=== PATIENT | female | born 1945 | race Caucasian/White ===

== ENCOUNTER 2024-02-03 14:31 | Observation (INO) | payer MEDICARE ==
--- NOTE | 2024-02-03 15:08 | ED ---
General Adult HPI - General Chief complaint: Syncope Stated complaint: Syncope Time Seen by Provider: 02/03/24 14:38 Source: patient, EMS, RN notes reviewed Mode of arrival: EMS Limitations: no limitations - History of Present Illness Initial comments: Patient is a pleasant 79-year-old female present to the emergency department with syncopal episode. Patient was up and walking with assistance from the . Patient was having some discomfort of her left knee and then did had a syncopal episode. Patient still had pulse and was breathing however was unresponsive per . This lasted up to 8 minutes. No history of similar symptoms previously. No trauma. Patient is postoperative left knee replacement 1 day ago. Patient states she is symptom-free at this time - Related Data Home Medications Medication Instructions Recorded Confirmed Allergy Medication (With Benadryl) 1 dose PO HS 02/03/24 02/03/24 Aspirin EC [Ecotrin] 325 mg PO BID 02/03/24 02/03/24 Baclofen 10 mg PO HS 02/03/24 02/03/24 Butalb/APAP/Caff 50-325-40Mg 1 tab PO Q4H PRN MDD 4 tabs 02/03/24 02/03/24 [Fioricet 50-325-40] Cholecalciferol [Vitamin D3 (125 125 mcg PO DAILY 02/03/24 02/03/24 Mcg = 5000 Iu)] Ibuprofen [Motrin] 800 mg PO Q6H PRN 02/03/24 02/03/24 Levothyroxine Sodium [Synthroid] 112 mcg PO DAILY 02/03/24 02/03/24 Loratadine [Claritin] 10 mg PO DAILY 02/03/24 02/03/24 Magnesium Oxide [Mag-Ox] 400 mg PO HS 02/03/24 02/03/24 Multivitamins, Thera [Multivitamin 1 tab PO DAILY 02/03/24 02/03/24 (formulary)] Nitrofurantoin Monohyd/M-Cryst 100 mg PO DAILY 02/03/24 02/03/24 [Macrobid] Simvastatin [Zocor] 10 mg PO DAILY 02/03/24 02/03/24 Venlafaxine HCl [Effexor XR] 150 mg PO DAILY 02/03/24 02/03/24 Verapamil HCl [Verapamil ER] 240 mg PO DAILY 02/03/24 02/03/24 Vitamin B Complex 1 cap PO DAILY 02/03/24 02/03/24 hydroCHLOROthiazide [Hydrodiuril] 25 mg PO DAILY 02/03/24 02/03/24 oxyCODONE HCL [OxyIR] 5 - 10 mg PO Q6H PRN 02/03/24 02/03/24 traMADol HCL 50 mg PO Q6H PRN 02/03/24 02/03/24 Allergies Allergy/AdvReac Type Severity Reaction Status Date / Time Iodinated Contrast Media Allergy Rash/Hives Verified 02/03/24 16:16 meperidine [From Demerol] Allergy HIVES Verified 02/03/24 16:16 Penicillins Allergy Unknown Verified 02/03/24 16:16 Childhood sulfur dioxide Allergy Unknown Verified 02/03/24 16:16 Childhood Review of Systems ROS Statement: Those systems with pertinent positive or pertinent negative responses have been documented in the HPI. ROS Other: All systems not noted in ROS Statement are negative. Constitutional: Denies: fever Eyes: Denies: eye pain ENT: Denies: ear pain Respiratory: Denies: cough, dyspnea Cardiovascular: Denies: chest pain Endocrine: Denies: fatigue Gastrointestinal: Denies: abdominal pain Genitourinary: Denies: dysuria Musculoskeletal: Denies: back pain Neurological: Denies: headache, weakness, confusion Past Medical History Past Medical History: Cancer History of Any Multi-Drug Resistant Organisms: None Reported Past Surgical History: Orthopedic Surgery, Tubal Ligation Additional Past Surgical History / Comment(s): thyroid CA, thyroid removed, Past Psychological History: No Psychological Hx Reported Smoking Status: Former smoker Past Alcohol Use History: None Reported Past Drug Use History: None Reported General Exam Limitations: no limitations General appearance: alert, in no apparent distress Head exam: Present: atraumatic, normocephalic Eye exam: Present: normal appearance, PERRL, EOMI ENT exam: Present: normal oropharynx Neck exam: Present: normal inspection. Absent: tenderness Respiratory exam: Present: normal lung sounds bilaterally Cardiovascular Exam: Present: regular rate, normal rhythm Expanded Peripheral pulses: 2+: Radial (R), Radial (L), Posterior Tibialis (R), Posterior Tibialis (L) GI/Abdominal exam: Present: soft. Absent: tenderness Extremities exam: Present: other (Left knee brace). Absent: calf tenderness Neurological exam: Present: alert, oriented X3, CN II-XII intact. Absent: motor sensory deficit Psychiatric exam: Present: normal affect, normal mood Skin exam: Present: normal color Course Vital Signs 02/03/24 02/03/24 02/03/24 14:46 15:32 15:35 Temperature 98 F Pulse Rate 71 51 L 70 Respiratory 18 18 18 Rate Blood Pressure 116/63 86/52 O2 Sat by Pulse 95 95 95 Oximetry 02/03/24 02/03/24 02/03/24 15:43 15:45 16:20 Temperature Pulse Rate 70 70 72 Respiratory 24 16 18 Rate Blood Pressure 128/62 136/64 134/54 O2 Sat by Pulse 92 L 98 95 Oximetry 02/03/24 17:02 Temperature Pulse Rate 72 Respiratory 17 Rate Blood Pressure 125/54 O2 Sat by Pulse 95 Oximetry EKG Findings - EKG Results: EKG: interpreted by EL (Left axis. Septal Q waves.), sinus rhythm, normal ST/T Medical Decision Making - Medical Decision Making Was pt. sent in by a medical professional or institution (Dr. PA, DIAMOND ASSORTER, urgent care, hospital, or halfway...) When possible be specific @ -No Did you speak to anyone other than the patient for history (EMS, parent, family, police, friend...)? What history was obtained from this source @ -History also taken by the who did witness the event and reports 8 minutes of unresponsiveness Did you review nursing and triage notes (agree or disagree)? Why? @ -I reviewed and agree with nursing and triage notes Were old charts reviewed (outside hosp., previous admission, EMS record, old EKG, old radiological studies, urgent care reports/EKG's, halfway records)? Report findings @ -No old charts were reviewed Differential Diagnosis (chest pain, altered mental status, abdominal pain women, abdominal pain men, vaginal bleeding, weakness, fever, dyspnea, syncope, headache, dizziness, GI bleed, back pain, seizure, CVA, palpatations, mental health, musculoskeletal)? @ -Differential Syncope: Valvular disease, hypertrophic cardiomyopathy, pulmonary embolism, tamponade, tachycardia, bradycardia, NC, hypovolemia, hemorrhage, dissection, anemia, intracranial hemorrhage, seizure, hypoglycemia, carbon monoxide poisoning, this is not meant to be an all-inclusive list. EKG interpreted by me (3pts min.). @ -As above X-rays interpreted by me (1pt min.). @ -None done CT interpreted by me (1pt min.). @ -CT scan of the chest negative for pulmonary embolism U/S interpreted by me (1pt. min.). @ -None done What testing was considered but not performed or refused? (CT, X-rays, U/S, labs)? Why? @ -None What meds were considered but not given or refused? Why? @ -None Did you discuss the management of the patient with other professionals (professionals i.e. DrFarrah, PA, DIAMOND ASSORTER, lab, RT, psych nurse, professor of social work, differential specialist, teacher, executive officer, case management coordinator)? Give summary @ -Case was discussed in detail with Dr. Alves who will admit covering for Dr. London Was smoking cessation discussed for >3mins.? @ -No Was critical care preformed (if so, how long)? @ -No Were there social determinants of health that impacted care today? How? (Homelessness, low income, unemployed, alcoholism, drug addiction, transportation, low edu. Level, literacy, decrease access to med. care, half-way, rehab)? @ -No Was there de-escalation of care discussed even if they declined (Discuss DNR or withdrawal of care, Hospice)? DNR status @ -No What co-morbidities impacted this encounter? (DM, HTN, Smoking, COPD, CAD, Cancer, CVA, ARF, Chemo, Hep., AIDS, mental health diagnosis, sleep apnea, morbid obesity)? @ -Postoperative knee replacement 1 day Was patient admitted / discharged? Hospital course, mention meds given and route, prescriptions, significant lab abnormalities, going to OR and other pertinent info. @ -Patient reevaluated and resting comfortably in bed. Patient and family updated on results and plan. Patient will be admitted. Admission orders written. Undiagnosed new problem with uncertain prognosis? @ -No Drug Therapy requiring intensive monitoring for toxicity (Heparin, Nitro, Insulin, Cardizem)? @ -No Were any procedures done? @ -No Diagnosis/symptom? @ -Syncope Acute, or Chronic, or Acute on Chronic? @ -Acute Uncomplicated (without systemic symptoms) or Complicated (systemic symptoms)? @ -Default Side effects of treatment? @ -No Exacerbation, Progression, or Severe Exacerbation? @ -No Poses a threat to life or bodily function? How? (Chest pain, USA, NC, pneumonia, PE, COPD, DKA, ARF, appy, cholecystitis, CVA, Diverticulitis, Homicidal, Suicidal, threat to staff... and all critical care pts) @ -No - Lab Data Result diagrams: 02/03/24 15:13 02/03/24 15:13 Lab Results 02/03/24 02/03/24 02/03/24 Range/Units 15:13 15:13 15:13 WBC 7.3 (3.8-10.6) k/uL RBC 3.92 (3.80-5.40) m/uL Hgb 12.3 (11.4-16.0) gm/dL Hct 37.1 (34.0-46.0) % MCV 94.6 (80.0-100.0) fL MCH 31.4 (25.0-35.0) pg MCHC 33.2 (31.0-37.0) g/dL RDW 13.3 (11.5-15.5) % Plt Count 113 L (150-450) k/uL MPV 7.5 Neutrophils % 77 % Lymphocytes % 13 % Monocytes % 7 % Eosinophils % 3 % Basophils % 1 % Neutrophils # 5.6 (1.3-7.7) k/uL Lymphocytes # 1.0 (1.0-4.8) k/uL Monocytes # 0.5 (0-1.0) k/uL Eosinophils # 0.2 (0-0.7) k/uL Basophils # 0.0 (0-0.2) k/uL PT (10.0-12.5) sec INR (<1.2) APTT (22.0-30.0) sec Sodium 135 L (137-145) mmol/L Potassium 3.8 (3.5-5.1) mmol/L Chloride 100 (98-107) mmol/L Carbon Dioxide 31 H (22-30) mmol/L Anion Gap 4 mmol/L BUN 10 (7-17) mg/dL Creatinine 0.45 L (0.52-1.04) mg/dL Est GFR (CKD-EPI)AfAm >90 (>60 ml/min/1.73 sqM) Est GFR (CKD-EPI)NonAf >90 (>60 ml/min/1.73 sqM) Glucose 121 H (74-99) mg/dL Calcium 8.6 (8.4-10.2) mg/dL Magnesium 1.7 (1.6-2.3) mg/dL Total Bilirubin 0.5 (0.2-1.3) mg/dL AST 27 (14-36) U/L ALT 23 (4-34) U/L Alkaline Phosphatase 102 (38-126) U/L Troponin I <0.012 (0.000-0.034) ng/mL Total Protein 6.1 L (6.3-8.2) g/dL Albumin 3.6 (3.5-5.0) g/dL 02/03/24 Range/Units 16:22 WBC (3.8-10.6) k/uL RBC (3.80-5.40) m/uL Hgb (11.4-16.0) gm/dL Hct (34.0-46.0) % MCV (80.0-100.0) fL MCH (25.0-35.0) pg MCHC (31.0-37.0) g/dL RDW (11.5-15.5) % Plt Count (150-450) k/uL MPV Neutrophils % % Lymphocytes % % Monocytes % % Eosinophils % % Basophils % % Neutrophils # (1.3-7.7) k/uL Lymphocytes # (1.0-4.8) k/uL Monocytes # (0-1.0) k/uL Eosinophils # (0-0.7) k/uL Basophils # (0-0.2) k/uL PT 11.5 (10.0-12.5) sec INR 1.1 (<1.2) APTT 19.9 L (22.0-30.0) sec Sodium (137-145) mmol/L Potassium (3.5-5.1) mmol/L Chloride (98-107) mmol/L Carbon Dioxide (22-30) mmol/L Anion Gap mmol/L BUN (7-17) mg/dL Creatinine (0.52-1.04) mg/dL Est GFR (CKD-EPI)AfAm (>60 ml/min/1.73 sqM) Est GFR (CKD-EPI)NonAf (>60 ml/min/1.73 sqM) Glucose (74-99) mg/dL Calcium (8.4-10.2) mg/dL Magnesium (1.6-2.3) mg/dL Total Bilirubin (0.2-1.3) mg/dL AST (14-36) U/L ALT (4-34) U/L Alkaline Phosphatase (38-126) U/L Troponin I (0.000-0.034) ng/mL Total Protein (6.3-8.2) g/dL Albumin (3.5-5.0) g/dL Disposition Clinical Impression: Syncope Disposition: ADMITTED IP TO THIS HOSP Is patient prescribed a controlled substance at d/c from ED?: No Referrals: Jagdeep London MD [Primary Care Provider] - 1-2 days Time of Disposition: 17:37
[2024-02-03] MEDS: SODIUM CHLORIDE 0.9% 1,000 ML IV STA (15:24)
[2024-02-03 15:28] LABS: Basophils % (A) 1 %; Eosinophils # (A) 0.2 k/uL (0-0.7); Eosinophils % (A) 3 %; HCT 37.1 % (34.0-46.0); HGB 12.3 gm/dL (11.4-16.0); Lymphocytes % (A) 13 %; MCH 31.4 pg (25.0-35.0); MCHC 33.2 g/dL (31.0-37.0); MCV 94.6 fL (80.0-100.0); Mean Platelet Volume 7.5; Monocytes # (A) 0.5 k/uL (0-1.0); Monocytes % (A) 7 %; Neutrophils # (A) 5.6 k/uL (1.3-7.7); Neutrophils % (A) 77 %; Platelet Count 113 k/uL (150-450); RBC 3.92 m/uL (3.80-5.40); RDW 13.3 % (11.5-15.5); WBC 7.3 k/uL (3.8-10.6)
[2024-02-03 15:40] LABS: ALT 23 U/L (4-34); AST 27 U/L (14-36); African American GFR (CKD) >90 (>60 ml/min/1.73 sqM); Albumin 3.6 g/dL (3.5-5.0); Alkaline Phosphatase 102 U/L (38-126); Anion Gap 4 mmol/L; Blood Urea Nitrogen 10 mg/dL (7-17); Calcium 8.6 mg/dL (8.4-10.2); Carbon Dioxide 31 mmol/L (22-30); Chloride 100 mmol/L (98-107); Glucose 121 mg/dL (74-99); Magnesium 1.7 mg/dL (1.6-2.3); Non-African American GFR(CKD) >90 (>60 ml/min/1.73 sqM); Potassium 3.8 mmol/L (3.5-5.1); Sodium 135 mmol/L (137-145); Total Bilirubin 0.5 mg/dL (0.2-1.3); Total Protein 6.1 g/dL (6.3-8.2)
[2024-02-03] MEDS: FAMOTIDINE 20 MG/2 ML VIAL IV STA (15:46)
[2024-02-03] MEDS: methylPREDNISolone SOD SUCCI 125 MG/2 ML VIAL IV STA (15:48)
[2024-02-03] MEDS: diphenhydrAMINE 50 MG/ML 1 ML VIAL IVP STA (15:48)
--- NOTE | 2024-02-03 16:41 | CT ---
EXAMINATION TYPE: CT angio chest CT DLP: 166.9 mGycm, Automated exposure control for dose reduction was used. DATE OF EXAM: 02/03/2024 4:29 PM COMPARISON: None CLINICAL INDICATION:Female, 79 years old with history of Postoperative syncope; Postoperative syncope . pt had pacemaker placed yesterday. sob today TECHNIQUE/CONTRAST: CTA scan of the thorax is performed with IV Contrast, patient injected with 100 cc mL of Isovue 300, MIP images are created and reviewed these are created on a separate workstation.. FINDINGS: Pulmonary Artery: There is no evidence for a filling defect within the pulmonary vasculature to sugge st acute pulmonary embolism. The pulmonary artery is of normal size. Lungs/Pleura: No evidence of focal consolidation, pleural effusion or pneumothorax. Airway: Large airways are patent. Heart: Heart is within normal limits for size. Mild to moderate coronary artery atherosclerosis. Vasculature: No evidence of aortic aneurysm. Mediastinum: No gross evidence of adenopathy. Musculoskeletal: No acute osseous abnormalities Soft Tissues: Unremarkable. Lower neck: No significant findings. Upper Abdomen: No significant findings. IMPRESSION: 1. No evidence of pulmonary embolism.
[2024-02-03 16:47] LABS: INR 1.1 (<1.2); Prothrombin Time 11.5 sec (10.0-12.5)
[2024-02-03 16:48] LABS: Partial Thromboplastin Time 19.9 sec (22.0-30.0)
[2024-02-03] MEDS ORDERED: HYDROcodone/APAP 5-325MG 1 EACH TAB PO PRN (17:37)
[2024-02-03] MEDS ORDERED: NALOXONE 0.4 MG/ML 1 ML VIAL IV PRN (17:37)
[2024-02-03] MEDS ORDERED: traMADol 50 MG TAB PO PRN (17:37)
[2024-02-03] MEDS: SODIUM CHLORIDE 0.9% 1,000 ML IV SCH (17:44)
[2024-02-03] MEDS ORDERED: BUTALB/APAP/CAFF 50-325-40MG TAB PO PRN (17:46)
[2024-02-03] MEDS: BACLOFEN 10 MG TAB PO SCH (20:56)
[2024-02-03] MEDS: ASPIRIN 325 MG TAB PO SCH (20:56)
[2024-02-03] MEDS: MAGNESIUM OXIDE 400 MG TAB PO SCH (20:56)
[2024-02-03] MEDS: diphenhydrAMINE 25 MG CAP PO SCH (20:56)
[2024-02-04] MEDS: IBUPROFEN 800 MG TAB PO PRN (00:37)
--- NOTE | 2024-02-04 02:07 | P.HPIM ---
History of Present Illness H&P Date: 02/03/24 Patient is a 79-year-old female with a PMH of left total knee replacement on day prior to presentation (03/03/24) by orthopedic surgical [facility] as an outpatient, hyperlipidemia, hypertension, hypothyroidism, and chronic UTIs on maintenance antibiotic therapy who presents to the emergency room after an episode of syncope and fall. The history is supplemented by the patient's at the bedside. He reports that he was helping the patient to ambulate across the house with a walker when the patient got weaker and collapsed. The was holding onto her and thereby was able to ease her down to the ground with no head trauma noted. He noticed that she had lost consciousness and was unresponsive for 5 to 7 minutes, while having an intact pulse and breathing. He activated EMS and the patient had regained consciousness upon their arrival. The patient recalls feeling lightheaded but denies experiencing chest discomfort, shortness of breath, or palpitations. She also recalls experiencing some diaphoresis and nausea without vomiting earlier in the day. As per the sband, the patient's blood pressure was 80s/40s upon EMS arrival. There were no reports of abnormal shaking movements or urinary incontinence. The patient notes that she has been utilizing her automatic pain pump (w/ local anesthetic) and had also taken a few doses of prescribed tramadol for postoperative pain control which has been controlled very well. She reported feeling at her baseline at the time of interview and had no active complaints. Denied experiencing headaches, visual disturbances, fever, chills, cough, abdominal pain, diarrhea. Also denied experiencing urinary complaints or abdominal pain, despite her history of chronic UTIs and reports that the maintenance antibiotic therapy has been working well. Of note, the patient again had an episode of near syncope while in the hospital with BP at that time 86/52 documented in the emergency room with pulse 51. Chest CTA in the emergency room was negative for pulmonary embolism with EKG showing sinus rhythm at 69 bpm with T wave flattening in leads II, V3 to V6 and T wave inversion in lead III and aVF (no prior EKG available for comparison). Laboratory evaluation was remarkable for troponin less than 0.012, platelets 11 3, sodium 135, CO2 31, creatinine 0.45, glucose 121. ED documentation reviewed and case discussed with ED provider. Review of systems: Pertinent positives and negatives as discussed in HPI, a complete review of systems was performed and all other systems are negative. Physical examination: Vital signs reviewed General: non toxic, no distress, appears at stated age, normal weight Derm: no unusual rashes/lesions, warm, left knee dressing in place Head: atraumatic, normocephalic, symmetric Eyes: EOMI, no lid lag, anicteric sclera, pupils equal round reactive to light ENT: Nose and ears atraumatic Neck: No cervical lymphadenopathy, trachea midline, supple Mouth: no lip lesion, mucus membranes moist Cardiovascular: S1S2 reg, no murmur, positive dorsalis pedis pulse bilateral, no edema Lungs: CTA bilateral, no rhonchi, no rales, no accessory muscle use Abdominal: soft, nontender to palpation, no guarding Ext: muscle strength 5 out of 5 in all extremities grossly except left lower extremity since postsurgical, distal left lower extremity strength intact, no gross muscle atrophy, no contractures, pain pump intact and on Neuro: CN II-XI grossly intact, no gross focal neuro deficits Psych: Alert, oriented, appropriate affect Assessment: Syncope, unclear etiology Status post left total knee replacement POD #1 Thrombocytopenia Hyponatremia, likely due to acute stressor Chronic conditions: Hypertension, hyperlipidemia, hypothyroidism, chronic UTIs Imaging: Chest CTA in the emergency room was negative for pulmonary embolism with EKG showing sinus rhythm at 69 bpm with T wave flattening in leads II, V3 to V6 and T wave inversion in lead III and aVF (no prior EKG available for comparison). Data Review: Laboratory evaluation was remarkable for troponin less than 0.012, platelets 113, sodium 135, CO2 31, creatinine 0.45, glucose 121. Plan: Cardiology consulted Cardiac monitoring Obtain echocardiogram Pain control with Preemption 5, tramadol, and motrin as needed PT consult Fall precautions Resume following home medications: Aspirin 325 mg p.o. twice daily, Pepcid, Synthroid, Macrobid, verapamil, and Effexor Hold patients home HCTZ at this time DVT prophylaxis: Aspirin 325 mg p.o. twice daily The patient is admitted with an anticipated less than 2 midnight stay for e valuation of syncope CODE STATUS: Full Code Discussed with: Patient Anticipated discharge place: Home Past Medical History Past Medical History: Cancer History of Any Multi-Drug Resistant Organisms: None Reported Past Surgical History: Orthopedic Surgery, Tubal Ligation Additional Past Surgical History / Comment(s): thyroid CA, thyroid removed, Past Psychological History: No Psychological Hx Reported Smoking Status: Former smoker Past Alcohol Use History: None Reported Past Drug Use History: None Reported Medications and Allergies Home Medications Medication Instructions Recorded Confirmed Type Allergy Medication (With Benadryl) 1 dose PO HS 02/03/24 02/03/24 History Aspirin EC [Ecotrin] 325 mg PO BID 02/03/24 02/03/24 History Baclofen 10 mg PO HS 02/03/24 02/03/24 History Butalb/APAP/Caff 50-325-40Mg 1 tab PO Q4H PRN MDD 4 tabs 02/03/24 02/03/24 History [Fioricet 50-325-40] Cholecalciferol [Vitamin D3 (125 125 mcg PO DAILY 02/03/24 02/03/24 History Mcg = 5000 Iu)] Ibuprofen [Motrin] 800 mg PO Q6H PRN 02/03/24 02/03/24 History Levothyroxine Sodium [Synthroid] 112 mcg PO DAILY 02/03/24 02/03/24 History Loratadine [Claritin] 10 mg PO DAILY 02/03/24 02/03/24 History Magnesium Oxide [Mag-Ox] 400 mg PO HS 02/03/24 02/03/24 History Multivitamins, Thera [Multivitamin 1 tab PO DAILY 02/03/24 02/03/24 History (formulary)] Nitrofurantoin Monohyd/M-Cryst 100 mg PO DAILY 02/03/24 02/03/24 History [Macrobid] Simvastatin [Zocor] 10 mg PO DAILY 02/03/24 02/03/24 History Venlafaxine HCl [Effexor XR] 150 mg PO DAILY 02/03/24 02/03/24 History Verapamil HCl [Verapamil ER] 240 mg PO DAILY 02/03/24 02/03/24 History Vitamin B Complex 1 cap PO DAILY 02/03/24 02/03/24 History hydroCHLOROthiazide [Hydrodiuril] 25 mg PO DAILY 02/03/24 02/03/24 History oxyCODONE HCL [OxyIR] 5 - 10 mg PO Q6H PRN 02/03/24 02/03/24 History traMADol HCL 50 mg PO Q6H PRN 02/03/24 02/03/24 History Allergies Allergy/AdvReac Type Severity Reaction Status Date / Time Iodinated Contrast Media Allergy Rash/Hives Verified 02/03/24 16:16 meperidine [From Demerol] Allergy HIVES Verified 02/03/24 16:16 Penicillins Allergy Unknown Verified 02/03/24 16:16 Childhood sulfur dioxide Allergy Unknown Verified 02/03/24 16:16 Childhood Physical Exam Vitals: Vital Signs Temp Pulse Resp BP Pulse Ox 02/03/24 22:00 75 18 134/60 98 02/03/24 18:24 99.6 F 76 17 132/66 97 02/03/24 17:02 72 17 125/54 95 02/03/24 16:20 72 18 134/54 95 02/03/24 15:45 70 16 136/64 98 02/03/24 15:43 70 24 128/62 92 L 02/03/24 15:35 70 18 95 02/03/24 15:32 51 L 18 86/52 95 02/03/24 14:46 98 F 71 18 116/63 95 Intake and Output 02/03/24 02/03/24 02/04/24 14:59 22:59 06:59 Other: Weight 59.421 kg Results CBC & Chem 7: 02/03/24 15:13 02/03/24 15:13 Labs: Abnormal Lab Results - Last 24 Hours (Table) 02/03/24 02/03/24 02/03/24 Range/Units 15:13 15:13 16:22 Plt Count 113 L (150-450) k/uL APTT 19.9 L (22.0-30.0) sec Sodium 135 L (137-145) mmol/L Carbon Dioxide 31 H (22-30) mmol/L Creatinine 0.45 L (0.52-1.04) mg/dL Glucose 121 H (74-99) mg/dL Total Protein 6.1 L (6.3-8.2) g/dL
[2024-02-04] MEDS: LEVOTHYROXINE 112 MCG TAB PO SCH (06:13)
[2024-02-04] MEDS: MULTIVITAMINS, THERA 1 EACH TAB PO SCH (08:11)
[2024-02-04] MEDS: ATORVASTATIN 10 MG TAB PO SCH (08:11)
[2024-02-04] MEDS: VENLAFAXINE HCL ER 150 MG CAP PO SCH (08:11)
[2024-02-04] MEDS: VERAPAMIL SR 240 MG TABLET.ER PO SCH (08:11)
[2024-02-04] MEDS: LORATADINE 10 MG TAB PO SCH (08:11)
[2024-02-04] MEDS: CHOLECALCIFEROL 125 MCG (5000 IU) TABLET PO SCH (08:11)
[2024-02-04] MEDS: NITROFURANTOIN MONOHYD/M-CRYST 100 MG CAP PO SCH (08:12)
[2024-02-04] MEDS ORDERED: hydroCHLOROthiazide 25 MG TAB PO SCH (09:00)
[2024-02-04] MEDS ORDERED: NON FORMULARY DRUG (Vitamin B Complex [Vitamin B Complex] 1 EACH Capsule) PO SCH (09:00)
[2024-02-04 10:27] LABS: Basophils # (A) 0.01 X 10*3/uL (0.00-0.10); Basophils % (A) 0.1 %; Eosinophils # (A) 0 X 10*3/uL (0.04-0.35); Eosinophils % (A) 0 %; HCT 34.2 % (37.2-46.3); HGB 11.2 g/dL (12.0-15.0); Lymphocytes # (A) 0.48 X 10*3/uL (0.90-5.00); Lymphocytes % (A) 5.8 %; MCH 31.5 pg (27.0-32.0); MCHC 32.7 g/dL (32.0-37.0); MCV 96.1 FL (80.0-97.0); Mean Platelet Volume 9.9 FL (9.5-12.2); Monocytes # (A) 0.75 X 10*3/uL (0.20-1.00); NRBC Per 100 WBC 0 X 10*3/uL (0.00-0.01); Neutrophils # (A) 7.04 X 10*3/uL (1.80-7.70); Neutrophils % (A) 84.5 %; Platelet Count 168 X 10*3/uL (140-440); RBC 3.56 X 10*6/uL (4.10-5.20); RDW 13.8 % (11.5-14.5); WBC 8.33 X 10*3/uL (4.50-10.00)
--- NOTE | 2024-02-04 10:28 | P.CRDCN ---
History of Present Illness Consult date: 02/04/24 Consult reason: sycope History of present illness: History of present illness: This is a 79-year-old female patient of Dr. Adolfo Park with past medical history of hypertension, dyslipidemia, hypothyroidism. We have been asked to evaluate the patient for syncope. Patient and family give history that she had a left total knee arthroplasty on Friday went home by the afternoon. On Friday afternoon around 2 PM she was getting to the bathroom and her was assisting her with a gait belt. Patient became limp and her helped her to the floor. Patient did have a loss of consciousness for about 4 to 5 minutes. EMS was called and by the time the ambulance arrived, patient was talking. Patient also had sweats at the time and blood pressure initially found to be 80 systolic. Patient had a similar episode while in the emergency center where she was found to have a drop in her blood pressure to systolic of 80s, she was sweating. She had felt lightheaded. No loss of consciousness this time. She denies having any chest pain or palpitations. Patient is seen today in the emergency center waiting for a bed on the observation unit. EKG sinus rhythm with no acute ST-T wave changes. CTA of the chest negative for PE. WBC 7.3, hemoglobin 12.3. Sodium 135, potassium 3.8, creatinine 0.45. Troponin negative x 3. Glucose 121. Home cardiac medications: Aspirin 325 mg twice daily, hydrochlorothiazide 25 mg daily, magnesium oxide 400 mg at bedtime, simvastatin 10 mg at bedtime, verapamil 250 mg daily. Treadmill exercise stress test performed on 11/20/2023 revealed fair exercise tolerance. No symptoms typical of angina. Dysrhythmias in the form of occasional PVCs. Normal electrocardiographic response to exercise with no evidence of stress-induced ischemia. Echocardiogram performed in the office on 11/20/2023 revealed EF 55%. Mild left ventricular hypertrophy. Hello yes Review Of Systems: At the time of my exam: CONSTITUTIONAL: Denies fever or chills. HEENT: Denies blurred vision, vision changes, or eye pain. Denies hemoptysis CARDIOVASCULAR: Denies chest pain. Denies orthopnea. Denies PND. Denies palpitations RESPIRATORY: Denies shortness of breath. GASTROINTESTINAL: Denies abdominal pain. Denies nausea or vomiting. HEMATOLOGIC: Denies bleeding disorders. GENITOURINARY: Denies any blood in urine. SKIN: Denies pruitis. Denies rash. Physical examination: Gen: This is a 79-year-old female in no acute distress VS: reviewed, blood pressure 165/76, heart rate 91, pulse ox 98% on 2 L nasal cannula. HEENT: Head is atraumatic, normocephalic. Pupils equal, round. Sclerae is anicteric. NECK: Supple. No JVD. LUNGS: Clear to auscultation. No wheezes or rhonchi. No intercostal retractions. HEART: Regular rate and rhythm. No murmur. ABDOMEN: Soft No tenderness. EXTREMITIES: No pedal edema. No calf tenderness. Left knee dressing in place over surgical wound. NEUROLOGICAL: Patient is awake, alert and oriented x3. Assessment: Syncopal episode most likely secondary to orthostatic hypotension Hypertension Dyslipidemia Hypothyroidism Plan: Resume patient's home cardiac medications May obtain orthostatic vital signs later today Ambulate patient with walker and assistance to evaluate symptoms No need to obtain echocardiogram If patient is doing well by this afternoon, she is cleared for discharge. Thank you kindly for this consultation. Nurse practitioner note has been reviewed, I agree with documented findings and plan of care. Patient was seen and examined. Past Medical History Past Medical History: Cancer History of Any Multi-Drug Resistant Organisms: None Reported Past Surgical History: Orthopedic Surgery, Tubal Ligation Additional Past Surgical History / Comment(s): thyroid CA, thyroid removed, Past Psychological History: No Psychological Hx Reported Smoking Status: Former smoker Past Alcohol Use History: None Reported Past Drug Use History: None Reported Medications and Allergies Home Medications Medication Instructions Recorded Confirmed Type Allergy Medication (With Benadryl) 1 dose PO HS 02/03/24 02/03/24 History Aspirin EC [Ecotrin] 325 mg PO BID 02/03/24 02/03/24 History Baclofen 10 mg PO HS 02/03/24 02/03/24 History Butalb/APAP/Caff 50-325-40Mg 1 tab PO Q4H PRN MDD 4 tabs 02/03/24 02/03/24 History [Fioricet 50-325-40] Cholecalciferol [Vitamin D3 (125 125 mcg PO DAILY 02/03/24 02/03/24 History Mcg = 5000 Iu)] Ibuprofen [Motrin] 800 mg PO Q6H PRN 02/03/24 02/03/24 History Levothyroxine Sodium [Synthroid] 112 mcg PO DAILY 02/03/24 02/03/24 History Loratadine [Claritin] 10 mg PO DAILY 02/03/24 02/03/24 History Magnesium Oxide [Mag-Ox] 400 mg PO HS 02/03/24 02/03/24 History Multivitamins, Thera [Multivitamin 1 tab PO DAILY 02/03/24 02/03/24 History (formulary)] Nitrofurantoin Monohyd/M-Cryst 100 mg PO DAILY 02/03/24 02/03/24 History [Macrobid] Simvastatin [Zocor] 10 mg PO DAILY 02/03/24 02/03/24 History Venlafaxine HCl [Effexor XR] 150 mg PO DAILY 02/03/24 02/03/24 History Verapamil HCl [Verapamil ER] 240 mg PO DAILY 02/03/24 02/03/24 History Vitamin B Complex 1 cap PO DAILY 02/03/24 02/03/24 History hydroCHLOROthiazide [Hydrodiuril] 25 mg PO DAILY 02/03/24 02/03/24 History oxyCODONE HCL [OxyIR] 5 - 10 mg PO Q6H PRN 02/03/24 02/03/24 History traMADol HCL 50 mg PO Q6H PRN 02/03/24 02/03/24 History Allergies Allergy/AdvReac Type Severity Reaction Status Date / Time Iodinated Contrast Media Allergy Rash/Hives Verified 02/03/24 16:16 meperidine [From Demerol] Allergy HIVES Verified 02/03/24 16:16 Penicillins Allergy Unknown Verified 02/03/24 16:16 Childhood sulfur dioxide Allergy Unknown Verified 02/03/24 16:16 Childhood Physical Exam Vitals: Vital Signs Temp Pulse Resp BP Pulse Ox 02/04/24 06:04 71 18 125/58 97 02/04/24 04:00 75 18 123/57 95 02/04/24 01:00 83 16 140/67 97 02/04/24 00:00 81 12 130/65 97 02/03/24 23:00 73 16 134/60 94 L 02/03/24 22:00 75 18 134/60 98 02/03/24 21:00 86 16 137/67 95 02/03/24 20:00 78 12 124/52 96 02/03/24 19:00 79 16 130/71 96 02/03/24 18:24 99.6 F 76 17 132/66 97 02/03/24 17:02 72 17 125/54 95 02/03/24 16:20 72 18 134/54 95 02/03/24 15:45 70 16 136/64 98 02/03/24 15:43 70 24 128/62 92 L 02/03/24 15:35 70 18 95 02/03/24 15:32 51 L 18 86/52 95 02/03/24 14:46 98 F 71 18 116/63 95 Results 02/03/24 15:13 02/03/24 15:13 Cardiac Enzymes 02/03/24 02/03/24 02/03/24 Range/Units 15:13 15:13 17:59 AST 27 (14-36) U/L Troponin I <0.012 <0.012 (0.000-0.034) ng/mL 02/03/24 Range/Units 20:38 AST (14-36) U/L Troponin I <0.012 (0.000-0.034) ng/mL Coagulation 02/03/24 Range/Units 16:22 PT 11.5 (10.0-12.5) sec APTT 19.9 L (22.0-30.0) sec CBC 02/03/24 Range/Units 15:13 WBC 7.3 (3.8-10.6) k/uL RBC 3.92 (3.80-5.40) m/uL Hgb 12.3 (11.4-16.0) gm/dL Hct 37.1 (34.0-46.0) % Plt Count 113 L (150-450) k/uL Comprehensive Metabolic Panel 02/03/24 Range/Units 15:13 Sodium 135 L (137-145) mmol/L Potassium 3.8 (3.5-5.1) mmol/L Chloride 100 (98-107) mmol/L Carbon Dioxide 31 H (22-30) mmol/L BUN 10 (7-17) mg/dL Creatinine 0.45 L (0.52-1.04) mg/dL Glucose 121 H (74-99) mg/dL Calcium 8.6 (8.4-10.2) mg/dL AST 27 (14-36) U/L ALT 23 (4-34) U/L Alkaline Phosphatase 102 (38-126) U/L Total Protein 6.1 L (6.3-8.2) g/dL Albumin 3.6 (3.5-5.0) g/dL Current Medications Generic Name Dose Route Start Last Admin Trade Name Freq PRN Reason Stop Dose Admin Acetaminophen/Butalbital/Caffeine 1 each 02/03/24 17:46 Butalb/Apap/Caff 50-325-40mg Tab PO Q4H PRN Migraine Headache Hydrocodone Bitart/Acetaminophen 1 each 02/03/24 17:37 Hydrocodone/Apap 5-325mg 1 Each Tab PO Q4HR PRN Moderate Pain (Scale 4 to 6) Aspirin 325 mg 02/03/24 21:00 02/03/24 20:56 Aspirin 325 Mg Tab PO 325 mg BID PENG Administration Atorvastatin Calcium 10 mg 02/04/24 09:00 Atorvastatin 10 Mg Tab PO DAILY PENG Baclofen 10 mg 02/03/24 21:00 02/03/24 20:56 Baclofen 10 Mg Tab PO 10 mg HS PENG Administration Cholecalciferol 125 mcg 02/04/24 09:00 Cholecalciferol 125 Mcg (5000 Iu) Tablet PO DAILY PENG Diphenhydramine HCl 25 mg 02/03/24 21:00 02/03/24 20:56 Diphenhydramine 25 Mg Cap PO 25 mg HS PENG Administration Sodium Chloride 1,000 mls @ 50 mls/hr 02/03/24 15:04 02/03/24 15:24 Saline 0.9% IV 02/04/24 11:03 50 mls/hr .Q20H STA Administration Ibuprofen 800 mg 02/03/24 17:46 02/04/24 00:37 Ibuprofen 800 Mg Tab PO 800 mg Q6H PRN Administration Pain Levothyroxine Sodium 112 mcg 02/04/24 06:30 02/04/24 06:13 Levothyroxine 112 Mcg Tab PO 112 mcg DAILY@0630 PENG Administration Loratadine 10 mg 02/04/24 09:00 Loratadine 10 Mg Tab PO DAILY PENG Magnesium Oxide 400 mg 02/03/24 21:00 02/03/24 20:56 Magnesium Oxide 400 Mg Tab PO 400 mg HS PENG Administration Multivitamins 1 each 02/04/24 09:00 Multivitamins, Thera 1 Each Tab PO DAILY [facility] Naloxone HCl 0.2 mg 02/03/24 17:37 Naloxone 0.4 Mg/Ml 1 Ml Vial IV Q2M PRN Opioid Reversal Nitrofurantoin Macrocrystals 100 mg 02/04/24 09:00 Nitrofurantoin Monohyd/M-Cryst 100 Mg Cap PO DAILY [facility] Oxycodone HCl 5 - 10 mg 02/03/24 17:46 Oxycodone Hcl 5 Mg Tab PO Q6H PRN Severe Pain (Scale 7 to 10) Tramadol HCl 50 mg 02/03/24 17:37 Tramadol 50 Mg Tab PO Q6H PRN Moderate Pain (Scale 4 to 6) Venlafaxine HCl 150 mg 02/04/24 09:00 Venlafaxine Hcl Er 150 Mg Cap PO DAILY [facility] Verapamil HCl 240 mg 02/04/24 09:00 Verapamil Sr 240 Mg Tablet.Er PO DAILY [facility] 02/03/24 15:13 02/03/24 15:13
[2024-02-04 12:21] LABS: ALT 19 U/L (8-44); AST 19 U/L (13-35); Albumin 3.7 g/dL (3.8-4.9); Albumin/Globulin Ratio 1.85 Ratio (1.60-3.17); Alkaline Phosphatase 77 U/L (41-126); Blood Urea Nitrogen 11.4 mg/dL (9.0-27.0); Calcium 8.6 mg/dL (8.7-10.3); Carbon Dioxide 26.4 mmol/L (21.6-31.8); Chloride 102 mmol/L (96-109); Glucose 116 mg/dL (70-110); Potassium 3.6 mmol/L (3.5-5.5); Sodium 141 mmol/L (135-145); Total Bilirubin 0.2 mg/dL (0.3-1.2); Total Protein 5.7 g/dL (6.2-8.2)
--- NOTE | 2024-02-04 14:47 | P.DS ---
Providers Date of admission: 02/03/24 17:38 Expected date of discharge: 02/04/24 Attending physician: Homar Tracy MD Consults: 02/03/24 17:37 Consult Physician Urgent Consulting Provider: Toribio Dong Consult Reason/Comments: syncope Do you want consulting provider notified?: Yes Primary care physician: [facility] Course: Patient is a 79-year-old female with a PMH of left total knee replacement on day prior to presentation (03/03/24) by orthopedic surgical [facility] as an outpatient, hyperlipidemia, hypertension, hypothyroidism, and chronic UTIs on maintenance antibiotic therapy who presents to the emergency room after an episode of syncope and fall. The history is supplemented by the patient's at the bedside. He reports that he was helping the patient to ambulate across the house with a walker when the patient got weaker and collapsed. The was holding onto her and thereby was able to ease her down to the ground with no head trauma noted. He noticed that she had lost consciousness and was unresponsive for 5 to 7 minutes, while having an intact pulse and breathing. He activated EMS and the patient had regained consciousness upon their arrival. The patient recalls feeling lightheaded but denies experiencing chest discomfort, shortness of breath, or palpitations. She also recalls experiencing some diaphoresis and nausea without vomiting earlier in the day. As per the , the patient's blood pressure was 80s/40s upon EMS arrival. There were no reports of abnormal shaking movements or urinary incontinence. Of note, the patient again had an episode of near syncope while in the hospital with BP at that time 86/52 documented in the emergency room with pulse 51. Chest CTA in the emergency room was negative for pulmonary embolism with EKG showing sinus rhythm at 69 bpm with T wave flattening in leads II, V3 to V6 and T wave inversion in lead III and aVF (no prior EKG available for comparison). Laboratory evaluation was remarkable for troponin less than 0.012, platelets 113, sodium 135, CO2 31, creatinine 0.45, glucose 121. Patient was admitted for syncope with Cardiology on board. Orthostats performed and negative. Cardiology consulted, recommended no Echo since recently done, likely orthostatic hypotension and cleared the patient for discharge if doing well this afternoon. Patient was seen and examined. No further episodes of dizziness. She is adamant about wanting to go home. Advised to monitor blood pressure at home and keep a daily log to be followed up with [employer]. She is also advised slow positional changes and plenty of hydration. General: non toxic, no distress, appears at stated age Derm: warm, dry Head: atraumatic, normocephalic, symmetric Eyes: EOMI, no lid lag, anicteric sclera Mouth: no lip lesion, mucus membranes moist Cardiovascular: S1S2 reg, no murmur Lungs: CTA bilateral, no rhonchi, no rales , no accessory muscle use Ext: no gross muscle atrophy, no edema, no contractures, left knee dressing c/d/i Neuro: no focal neuro deficits Psych: Alert, oriented, appropriate affect Discharge Diagnosis: Syncopal episode likely related to orthostatic hypotension Status post left total knee replacement POD #2 Normocytic anemia Prerenal azotemia Hypertension Dyslipidemia Hypothyroidism Resolved: Hyponatremia This complex discharge took 35 minutes to complete. Patient Condition at Discharge: Stable Plan - Discharge Summary New Discharge Prescriptions: Continue Vitamin B Complex 1 cap PO DAILY Cholecalciferol [Vitamin D3 (125 Mcg = 5000 Iu)] 125 mcg PO DAILY Butalb/APAP/Caff 50-325-40Mg [Fioricet 50-325-40] 1 tab PO Q4H PRN MDD 4 tabs PRN Reason: Migraine Headache traMADol HCL 50 mg PO Q6H PRN PRN Reason: Moderate Pain (Scale 4 To 6) Verapamil HCl [Verapamil ER] 240 mg PO DAILY Aspirin EC [Ecotrin] 325 mg PO BID Nitrofurantoin Monohyd/M-Cryst [Macrobid] 100 mg PO DAILY Levothyroxine Sodium [Synthroid] 112 mcg PO DAILY hydroCHLOROthiazide [Hydrodiuril] 25 mg PO DAILY Simvastatin [Zocor] 10 mg PO DAILY Allergy Medication (With Benadryl) 1 dose PO HS Magnesium Oxide [Mag-Ox] 400 mg PO HS Multivitamins, Thera [Multivitamin (formulary)] 1 tab PO DAILY Loratadine [Claritin] 10 mg PO DAILY Venlafaxine HCl [Effexor XR] 150 mg PO DAILY oxyCODONE HCL [OxyIR] 5 - 10 mg PO Q6H PRN PRN Reason: Severe Pain (Scale 7 To 10) Baclofen 10 mg PO HS Discontinued Ibuprofen [Motrin] 800 mg PO Q6H PRN PRN Reason: Pain Discharge Medication List Allergy Medication (With Benadryl) 1 dose PO HS 02/03/24 [History] Aspirin EC [Ecotrin] 325 mg PO BID 02/03/24 [History] Baclofen 10 mg PO HS 02/03/24 [History] Butalb/APAP/Caff 50-325-40Mg [Fioricet 50-325-40] 1 tab PO Q4H PRN MDD 4 tabs 02/03/24 [History] Cholecalciferol [Vitamin D3 (125 Mcg = 5000 Iu)] 125 mcg PO DAILY 02/03/24 [History] Levothyroxine Sodium [Synthroid] 112 mcg PO DAILY 02/03/24 [History] Loratadine [Claritin] 10 mg PO DAILY 02/03/24 [History] Magnesium Oxide [Mag-Ox] 400 mg PO HS 02/03/24 [History] Multivitamins, Thera [Multivitamin (formulary)] 1 tab PO DAILY 02/03/24 [History] Nitrofurantoin Monohyd/M-Cryst [Macrobid] 100 mg PO DAILY 02/03/24 [History] Simvastatin [Zocor] 10 mg PO DAILY 02/03/24 [History] Venlafaxine HCl [Effexor XR] 150 mg PO DAILY 02/03/24 [History] Verapamil HCl [Verapamil ER] 240 mg PO DAILY 02/03/24 [History] Vitamin B Complex 1 cap PO DAILY 02/03/24 [History] hydroCHLOROthiazide [Hydrodiuril] 25 mg PO DAILY 02/03/24 [History] oxyCODONE HCL [OxyIR] 5 - 10 mg PO Q6H PRN 02/03/24 [History] traMADol HCL 50 mg PO Q6H PRN 02/03/24 [History] Follow up Appointment(s)/Referral(s): Jose Alberto Orr MD [STAFF PHYSICIAN] - 1 Week Jagdeep London MD [Primary Care Provider] - 1-2 days Activity/Diet/Wound Care/Special Instructions: Please monitor your blood pressure at home. Slow positional changes. Drink plenty of water. Follow up with PCP within 1-2 days and Cardiology within 1 week of discharge. Discharge Disposition: HOME SELF-CARE
[2024-02-04 15:13] VITALS: BP 122/60; PULSE 78; RESP 18; TEMP 97.8
== END 2024-02-04 15:05 | disposition home or self-care (01) ==
LOC: EC 14:31 → SUPCPDRO 14:31 → 6NMEDSUR 17:38
PROVIDERS: ADMIT Student in an Organized Health Care Education/Training Program; ATTEND Student in an Organized Health Care Education/Training Program
DX: R55 Syncope and collapse (principal); I11.9 Hypertensive heart disease without heart failure; E87.1 Hypo-osmolality and hyponatremia; E03.9 Hypothyroidism, unspecified; E78.5 Hyperlipidemia, unspecified; D69.6 Thrombocytopenia, unspecified; R61 Generalized hyperhidrosis; D64.9 Anemia, unspecified; R79.89 Other specified abnormal findings of blood chemistry; Z96.652 Presence of left artificial knee joint; Z79.82 Long term (current) use of aspirin; Z79.890 Hormone replacement therapy; Z79.899 Other long term (current) drug therapy; Z91.041 Radiographic dye allergy status; Z88.5 Allergy status to narcotic agent; Z88.0 Allergy status to penicillin; Z91.048 Other nonmedicinal substance allergy status; Z87.891 Personal history of nicotine dependence; Z87.440 Personal history of urinary (tract) infections
CPT/HCPCS: 96374; 96375; 99285; 36415; 94760; 93005; 80053 ×2; 83735; 84484; 85025 ×2; 85610; 85730; 71275; G0378 ×2; J1200; J3490; Q9967; J2919